=== PATIENT | female | born 2005 | race Caucasian/White ===

== ENCOUNTER 2024-06-02 19:34 | Emergency (ER) | payer OTHER, SELFPAY ==
[2024-06-02 19:37] VITALS: BP 132/79
[2024-06-02 20:31] LABS: % Basophils 1.1 % (0-2); % Eosinophils 1.8 % (0-6); % Immature Granulocytes 0.3 % (0-0.5); % Lymphocytes 36.7 % (20.5-51.1); % Monocytes 6.6 % (1.7-9.3); % Neutrophils 53.5 % (42.2-75.2); Absolute Basophils 0.1 10^3/uL (0-0.2); Absolute Eosinophils 0.2 10^3/uL (0-0.7); Absolute Lymphocytes 3.2 10^3/uL (1.2-3.4); Absolute Monocytes 0.6 10^3/uL (0.1-0.6); Absolute Neutrophils 4.7 10^3/uL (1.4-6.5); Hematocrit 37.9 % (37.0-47.0); Hemoglobin 12.7 g/dL (12.0-16.0); Mean Corp Hgb Conc. 33.5 g/dL (33.0-37.0); Mean Corpuscular Hgb 27.9 pg (27.0-31.0); Mean Corpuscular Volume 83.3 fL (81.0-99.0); Mean Platelet Volume 10.2 fL (7.4-10.4); Nucleated Red Blood Cells % 0 %; Platelet Count 400 10^3/uL (130-400); Red Blood Cell Count 4.55 10^6/uL (4.20-5.40); Red Cell Dist. Width 12.9 % (11.5-14.5); White Blood Cell Count 8.8 10^3/uL (4.8-10.8)
[2024-06-02 20:47] LABS: ALT (SGPT) 14 U/L (0-35); AST (SGOT) 20 U/L (14-36); Albumin 4.6 g/dl (3.5-5.0); Alkaline Phosphatase 56 U/L (38-126); Blood Urea Nitrogen 10 mg/dl (7-17); Calcium 9.3 mg/dl (8.4-10.2); Carbon Dioxide 27 mmol/L (22-30); Chloride 99 mmol/L (98-107); Glucose 67 mg/dl (70-99); Potassium 4.6 mmol/L (3.5-5.1); Sodium 136 mmol/L (135-145); Total Bilirubin 0.5 mg/dl (0.2-1.3); Total Protein 7.6 g/dl (6.3-8.2); eGFR > 60.00
[2024-06-02 22:57] VITALS: BP 109/65
--- NOTE | 2024-06-03 00:29 | ED.GENMED ---
History of Present Illness
General
Chief Complaint: Rectal Bleeding
Source: patient and family
Exam Limitations: none
Time Seen by Provider: 06/03/24 00:16
Nursing documentation reviewed up to this point in time: agreed with
History of Present Illness
History of Present Illness:
Pleasant 18-year-old female presents to the emergency department after having 1 episode of bright red blood per rectum while using the toilet. She denies continuous bleeding. Patient is here because she is due to donate stem cells in the morning
and it is a requirement that this be evaluated. She reports no abdominal symptoms. Denies chest pain or shortness of breath. She reports no fever, chills, nausea or vomiting. She has had anal fissures in the past which caused similar symptoms.
Past History
Past History
ED Past Medical History: None
ED Past Surgical History: Orthopedic and Other (Myringotomy tubes)
Review of Systems
Review of Systems
Allergies reviewed?: Yes
Other source history: family
All Other Systems: ROS reviewed and negative except as documented in HPI and ROS
Constitutional: Reports no symptoms
EENT: Reports no symptoms
Respiratory: Reports no symptoms
Cardiac: Reports no symptoms
ABD/GI: Reports other (Blood on the tissue paper when wiping after having a bowel)
: Reports no symptoms
Musculoskeletal: Reports no symptoms
Skin: Reports no symptoms
Neurological: Reports no symptoms
Endocrine: Reports no symptoms
Hematologic/Lymphatic: Reports no symptoms
Psychiatric: Reports no symptoms
Phy Exam
General Physical Exam
General Presentation: well appearing and no apparent distress
General Skin: warm and dry
General Habitus: normal
General Mental: alert
General Hydration: appears well hydrated
ENT Exam
ENT Exam: EOMI, pharynx normal, neck supple and normocephalic
Eye Exam
Eye Exam: PERRL, cornea clear and conjunctiva normal
Cardiovascular Exam
Cardiovascular Exam: regular rate/rhythm, no edema, no murmur and normal peripheral pulses
Pulmonary Exam
Pulmonary Exam: lungs clear, no respiratory distress, no rales, no crackles, no rhonchi, no stridor, no wheezing and no cough
Gastrointestinal Exam
Gastrointestinal Exam: normal bowel sounds, non tender, soft, no organomegaly, no pulsatile mass and non distended
Palpation: generalized: No tenderness
Rectal Exam: no rectal mass and other (Small fissure at the 3 o'clock position approximately one centimeter in length)
Neurological Exam
Neurological Exam: alert, oriented x3, no motor deficits and speech normal
Musculoskeletal Exam
Musculoskeletal Exam: full ROM and no edema
Skin Exam
Skin Exam: normal color, warm/dry, no rash and no petechia
Psychiatric Exam
Psychiatric Exam: normal mood/affect
Course
Orders/Labs/Results
Orders:
Orders
06/02/24 19:54
CMP [Comprehensive Metabolic Panel] Urgent
Complete Blood Count/With Diff Urgent
06/02/24 20:12
Type And Crossmatch [Type+Screen] Urgent
Abnormal Lab Results
06/02/24
19:54
Glucose 67 L mg/dl
(70-99)
06/02/24 19:54
06/02/24 19:54
Vital Signs
Initial and Last Documented VS:
Initial Vital Signs
Temp Pulse Resp BP Pulse Ox
98.7 F 90 18 132/79 100
06/02/24 19:37 06/02/24 19:37 06/02/24 19:37 06/02/24 19:37 06/02/24 19:37
Last Documented Vital Signs
Temp Pulse Resp BP Pulse Ox
98.7 F 87 20 109/65 99
06/02/24 19:37 06/02/24 22:57 06/02/24 22:57 06/02/24 22:57 06/02/24 22:57
*Critical Care Note
Total Time (30-74mins, 75-104mins- exclusive of procedures): Not Applicable
Update Note
Update Note:
Rectal exam performed in the presence of female nurse a small fissure with no evidence of blood. Rectal tone was normal
ED Attending Note
-
Portions of this chart may have been created with voice recognition software.� Occasional wrong word or��sound alike� substitutions may have occurred due to the inherent limitations of voice recognition software.
Discharge Plan
Departure
Patient Disposition: Home (Routine Discharge)
Date of Disposition: 06/03/24
Time of Disposition: 00:33
Patient with high blood pressure during this ER visit?: No
Condition: Good
Discharge Problem:
Acute anal fissure
Instructions: Anal Fissure (DC)
Prescriptions:
New
docusate sodium [Colace] 100 mg capsule
100 mg PO BID Qty: 30 0RF
hydrocortisone acetate [Anusol-HC] 25 mg suppository
25 mg ID HS Qty: 12 0RF
No Action
cephalexin 500 mg capsule
500 mg PO TID 7 Days Qty: 21 0RF
Referrals:
Prashanth Ramos DO [Family Provider] -
Interventions
Interventions:
*Risk Screen - Suicide Last Done: 06/02/24 19:37
*General Assessment Last Done: 06/02/24 19:37
*Neglect/Abuse Screening Last Done: 06/02/24 19:37
*ED COVID-19 Vaccine History Last Done: 06/02/24 19:37
BZ-Gohzep-Nsqpoqevnp Assessment Last Done: 06/03/24 00:29
ED- Pulmonary Assessment Last Done: 06/03/24 00:29
Discharge Date and Time
Print Language: JAPANESE
== END 2024-06-03 00:39 | disposition home or self-care (01) ==
LOC: EMR 19:34
PROVIDERS: Student in an Organized Health Care Education/Training Program; EMERGENCY PHYSICIAN Student in an Organized Health Care Education/Training Program; FAMILY PHYSICIAN Family Medicine
DX: K60.0 Acute anal fissure (principal)
CPT/HCPCS: 99283; 80053; 85025; 86850; 86900; 86901